=== PATIENT | male | born 1995 | race American Indian/Alaskan Native ===

== ENCOUNTER 2023-12-31 22:54 | Emergency (ER) | payer MEDICAID, SELFPAY ==
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
== END 2023-12-31 23:02 | disposition left against medical advice (07) ==
PROVIDERS: Emergency Provider Emergency Medicine
DX: Z53.21 Procedure and treatment not carried out due to patient leaving prior to being seen by health care provider (principal)

== ENCOUNTER → 2024-04-24 | Outpatient (BNVA) | payer MEDICAID, SELFPAY | END | disposition home or self-care (01) | PROVIDERS: PCP Physician Assistant; Referring Provider Physician Assistant; Visit Provider Urology | DX: N47.8 Other disorders of prepuce (principal); N40.0 Benign prostatic hyperplasia without lower urinary tract symptoms; E66.9 Obesity, unspecified; Z68.30 Body mass index [BMI] 30.0-30.9, adult | CPT/HCPCS: 81003; 99212; G0463 ==

== ENCOUNTER 2024-07-16 06:15 | Day surgery (SDC) | payer MEDICAID, SELFPAY ==
[2024-07-15 11:17] VITALS: BMI 29.9
[2024-07-16] VITALS (11 sets, daily range): BP systolic 124–150; BP diastolic 58–93; PULSE 74–100; RESP 12–20; TEMP 36.5–36.8; O2SAT 95–99; BMI 27.3
[2024-07-16] MEDS: RINGERS LACTATED 1000 ML 1,000 ML 20 ML IV (07:02)
--- NOTE | 2024-07-16 10:58 | SUR.PHASEI ---
1058 Patient arrived to recovery resting comfortably in [facility], on oxygen 8L via oxy mask with an oral airway, breathing unlabored, vital signs stable, dressing intact to penis; sutures, telfa, tape, no bleeding noted, lung sounds clear upon auscultation, bilateral radial pulses present when palpated, report received from Dr. Soriano and Froilan BULL
--- NOTE | 2024-07-16 11:03 | PD.SUROPNT ---
Date of Procedure 07/16/24 Pre Op Diagnosis Redundant prepuce, longer frenulum Post Op Diagnosis Same plus preputial adhesions Procedure Release of the adhesions and circumcision Findings Redundant prepuce long frenulum and preputial adhesions Procedure Description This is a 29-year-old gentleman who is seen in urology office he had redundant prep use and patient also has long frenulum patient desired circumcision release of the frenulum and release of the preputial adhesions procedure and complications were discussed with patient in great detail informed consent is obtained. Patient was brought to the operating room in a satisfactory condition after appropriate premedication was put on the operating table in a spine position he was appropriately identified by surgeon and operating room staff site scope and indications of the procedure were reconfirmed with the patient Next general anesthesia was given uneventfully parts were prepped and draped in the usual sterile fashion. Next skin incision was made on the skin aspect of the prepuce circumferentially frenulum was released and adhesions near the frenulum were also released. This incision were carried down to the fascial layers. Now the skin was everted and another circumferential incision was made on the mucosal aspect of the prepuce skin between the 2 incision was excised proper hemostasis were obtained no active bleeding was seen. Next skin to mucosa was approximated with 3-0 chromic in interrupted fashion sterile dressings were applied patient after having tolerated the procedure well was moved to recovery room in a satisfactory condition to be discharged home with the full postoperative instructions verbally as well as in writing to be followed in urology office Anesthesia GETA Pathology / specimen None Estimated Blood Loss 1 Condition Stable Surgeon Vilma Menendez MD Surgical Staff Operation Date: 07/16/24 08:30 Case Staff Anesthesiologist: Luis Soriano
--- NOTE | 2024-07-16 12:25 | SUR.PHASEII ---
1225 Discharge instructions given over the phone to Johanna patient (ex-)Johanna and patient hearing on speaker phone with teach-back approached used, patient and Johanna receptive to instructions.
--- NOTE | 2024-07-16 12:38 | SUR.PHASEII ---
1210 Dr. Menendez at bedside assessed patients dressing, dressing is clean, dry and intact, Dr. Oliva gave order to keep patient in bed for dressing to be stable and he would come back and assess him prior to discharge 1238 Dr. Menendez at bedside assessed patient dressing, cleared patient for discharge.
--- NOTE | 2024-07-16 12:41 | SUR.PHASEII ---
1241 Report given to Georgia Singh RN to assume care of patient, patient awake and alert, breathing unlabored, vital signs stable, denies pain, dressing intact; no bleeding noted, patient ate two apple sauces and drank a cup of water and 7up, tolerated well, denies nausea.
--- NOTE | 2024-07-16 12:55 | SUR.PHASEII ---
1241: pt awake, alert, breathing unlabored, disconnected from monitors, report from Georgia Riley RN 1255: pt awake, alert, able to follow commands, breathing unlabored, pt able to dress self and ambulate with steady gait, discharge instructions given by Georgia Riley RN via telephone with significant other, pt discharged via wheelchair with all belongings and copies of discharge paperwork.
== END 2024-07-16 12:55 | disposition home or self-care (01) ==
PROVIDERS: PCP Physician Assistant; Referring Provider Urology; Visit Provider Urology
PROC: (CPT 54161; principal; 2024-07-16 08:30)
DX: N47.8 Other disorders of prepuce (principal); N47.5 Adhesions of prepuce and glans penis
CPT/HCPCS: 54161; A4217; A4649; J1100; J1885; J2371; J2704; J2765; J3010; J3490; J7120; A9270; J0665

== ENCOUNTER 2024-12-15 07:24 | Emergency (ER) | payer MEDICAID, SELFPAY ==
[2024-12-15 07:25] VITALS: BMI 28.1
[2024-12-15 07:36] VITALS: BP 127/83; PULSE 80; RESP 19; TEMP 36.3; O2SAT 96
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
[2024-12-15 09:01] VITALS: BP 147/77; PULSE 85; RESP 19; TEMP 36.6; O2SAT 96
== END 2024-12-15 09:12 | disposition home or self-care (01) ==
PROVIDERS: Emergency Provider Emergency Medicine; PCP Physician Assistant
DX: S43.401A Unspecified sprain of right shoulder joint, initial encounter (principal); V19.3XXA Pedal cyclist (driver) (passenger) injured in unspecified nontraffic accident, initial encounter; Y93.55 Activity, bike riding
CPT/HCPCS: 73030; 99284

== ENCOUNTER 2025-02-08 01:45 | Emergency (ER) | payer MEDICAID, SELFPAY ==
[2025-02-08 01:47] VITALS: BMI 27.3
[2025-02-08 02:41] VITALS: BP 117/60; PULSE 100; RESP 17; TEMP 36.8; O2SAT 98
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
[2025-02-08] MEDS: DIPHTH,PERTUSS(ACELL),TET VAC 0.5 ML SYR- ADULT IMi (04:04)
[2025-02-08] MEDS: AMOXICILLIN/POT CLAV 875 TABLET 1 TAB PO (04:04)
[2025-02-08] MEDS: BACITRACIN OINT 1 GM PACKET TOP (04:04)
== END 2025-02-08 04:25 | disposition home or self-care (01) ==
LOC: SERX 04:13
PROVIDERS: Emergency Provider Emergency Medicine; PCP Nurse Practitioner Family
DX: S61.532A Puncture wound without foreign body of left wrist, initial encounter (principal); S81.832A Puncture wound without foreign body, left lower leg, initial encounter; W54.0XXA Bitten by dog, initial encounter; Z23 Encounter for immunization
CPT/HCPCS: 90471; 90715; 99284; A9270